=== PATIENT | female | born 1975 | race Caucasian/White ===

== ENCOUNTER 2017-06-25 01:21 | Emergency (ER) | payer OTHER ==
[~2017-06-25] VITALS: Ht 162.6 cm; Wt 84.8 kg
[2017-06-25] MEDS ORDERED: NKM (01:32)
[2017-06-25 01:48] VITALS: BP 150/87
[2017-06-25] MEDS ORDERED: PHENAZOPYRIDIN200 MG ORAL (01:56)
[2017-06-25] MEDS ORDERED: KEFLEX500 MG ORAL (01:56)
--- NOTE | 2017-06-25 01:56 | Emergency Room Report ---
History of Present Illness General Chief Complaint: Female Urogenital Problems Source: Patient Present Illness HPI This is a 41-year-old female with a history of recurrent urinary tract infection. She's been having urinary frequency, urgency and dysuria for the last 5 days. No back pain. No nausea no vomiting. No fever. She been taking Pyridium without much relief. Denies any other complaint. Allergies: Coded Allergies: AMOXICILLIN (Verified Allergy, Unknown, 06/25/17) CLINDAMYCIN (Verified Allergy, Unknown, 06/25/17) ERYTHROMYCIN BASE (Verified Allergy, Unknown, 06/25/17) Patient History Past Medical History: see triage record, old chart reviewed Past Surgical History: other Pertinent Family History: none Social History: Denies: smoking Last Menstrual Period: June Now: No Immunizations: other Reviewed Nursing Documentation: PMH: Agreed; PSxH: Agreed Nursing Documentation-PMH Hx Gastrointestinal Problems: Yes - CHOLECYSTECTOMY Review of Systems Eye: Denies: eye pain, blurred vision ENT: Denies: ear pain, nose congestion, throat swelling Respiratory: Denies: cough, shortness of breath Cardiovascular: Denies: chest pain, palpitations Gastrointestinal: Denies: abdominal pain, diarrhea, nausea, vomiting Genitourinary: Reports: dysuria, frequency, urgency Musculoskeletal: Denies: back pain, joint pain Skin: Denies: rash Neurological: Denies: headache, numbness Endocrine: Denies: increased thirst, increased urine Hematologic/Lymphatic: Denies: easy bruising All Other Systems: negative except mentioned in HPI Physical Exam Vital Signs Date Time Temp Pulse Resp B/P (MAP) Pulse Ox O2 Delivery O2 Flow Rate FiO2 06/25/17 01:25 98.1 83 16 150/87 97 Room Air 98.1 vitals normal except for high blood pressure Sp02 EP Interpretation: reviewed, normal General Appearance: well appearing, no apparent distress, alert Head: normocephalic, atraumatic Eyes: bilateral eye PERRL, bilateral eye EOMI ENT: hearing grossly normal, normal pharynx Neck: full range of motion, supple, no meningismus Respiratory: chest non-tender, lungs clear, normal breath sounds Cardiovascular #1: regular rate, rhythm, no murmur Gastrointestinal: normal bowel sounds, non tender, no mass, no organomegaly, no bruit, non-distended Musculoskeletal: back normal, gait/station normal, normal range of motion Psychiatric: mood/affect normal Skin: warm/dry Medical Decision Making Diagnostic Impression: Primary Impression: UTI (urinary tract infection) Qualified Codes: N30.00 - Acute cystitis without hematuria ER Course Patient presents with uncompensated UTI. No evidence of polynephritis. We'll discharge home with antibiotics. Last Vital Signs Date Time Temp Pulse Resp B/P (MAP) Pulse Ox O2 Delivery O2 Flow Rate FiO2 06/25/17 01:48 98.1 83 16 150/87 97 Room Air 98.1 Status: improved Disposition: HOME, SELF-CARE Condition: Stable Scripts Phenazopyridine Hcl* (PYRIDIUM*) 200 Mg Tablet 200 MG ORAL THREE TIMES A DAY, #6 TAB 0 Refills Prov: VINCE RUEDA M.D. 06/25/17 Cephalexin* (KEFLEX*) 500 Mg Capsule 500 MG ORAL TID, #21 CAP 0 Refills Prov: VINCE RUEDA M.D. 06/25/17 Patient Instructions: Urinary Tract Infection Additional Instructions: Follow-up with your DrRadha in 2-3 days if not better. Return if symptom worsen. VINCE RUEDA M.D. Jun 25, 2017 01:56
[2017-06-25] MEDS ORDERED: Cephalexin 500mg cap ORAL ONE (02:00)
[2017-06-25 02:03] VITALS: BP 150/87
== END 2017-06-25 02:05 | disposition home or self-care (01) ==
LOC: EMR 01:35
DX: N39.0 Urinary tract infection, site not specified (principal); Z88.0 Allergy status to penicillin
CPT/HCPCS: 87086; 99284